=== PATIENT | male | born 1975 | race African-American/Black ===

== ENCOUNTER 2018-03-27 01:05 | Emergency (ER) | payer OTHER ==
[2018-03-27] MEDS ORDERED: IBUPROFEN 600 MG TABLET PO ONE (02:36)
[2018-03-27] MEDS ORDERED: ACETAMINOPHEN 325 MG TABLET PO ONE (02:36)
[2018-03-27] MEDS ORDERED: MORPHINE SULFATE IR 15 MG TABLET PO ONE (02:36)
[2018-03-27] MEDS ORDERED: SULFAMETHOXAZOLE/TRIMETHOPRIM 800-160 MG TABLET PO ONE (02:37)
--- NOTE | 2018-03-27 02:38 | ER Document Report ---
ED General - General Chief Complaint: Abscess Stated Complaint: ABSCESS Time Seen by Provider: 03/27/18 01:20 Notes: Patient is a 42-year-old male with a past medical history of diabetes who presents with several days of progressively worsening swelling and pain to his low abdomen. He describes the area as having a dull, throbbing, constant pain worsened by touching the area. Nothing improves the pain. He has not seen his general doctor regarding today's concerns. He states he believes this is an abscess. He has not had any fever or constitutional symptoms. He denies history of similar symptoms in the past. He denies any additional symptoms or concerns. TRAVEL OUTSIDE OF THE [place] IN LAST 30 DAYS: No - Related Data Allergies/Adverse Reactions: No Known Allergies Allergy (Verified 05/27/16 02:41) Past Medical History - General Information source: Patient - Social History Smoking Status: Never Smoker Frequency of alcohol use: None Drug Abuse: None Lives with: Spouse/Significant other Family History: Reviewed & Not Pertinent - Past Medical History Cardiac Medical History: Reports: Hx Hypercholesterolemia, Hx Hypertension Pulmonary Medical History: Denies: Hx Tuberculosis Neurological Medical History: Denies: Hx Seizures Endocrine Medical History: Reports: Hx Diabetes Mellitus Type 2 Skin Medical History: Reports Hx Cellulitis, Denies Hx MRSA Past Surgical History: Reports: Hx Orthopedic Surgery - ankle and toe. Denies: Hx Appendectomy, Hx Bowel Surgery, Hx Cholecystectomy, Hx Coronary Artery Bypass Graft, Hx Gastric Bypass Surgery, Hx Herniorrhaphy, Hx Pacemaker, Hx Tonsillectomy - Immunizations Immunizations up to date: Yes Hx Diphtheria, Pertussis, Tetanus Vaccination: Yes - 2005 Hx Pneumococcal Vaccination: 08/11/05 Review of Systems - Review of Systems Notes: Constitutional: Negative for fever. HENT: Negative for sore throat. Eyes: Negative for visual changes. Cardiovascular: Negative for chest pain. Respiratory: Negative for shortness of breath. Gastrointestinal: Negative for abdominal pain, vomiting or diarrhea. Genitourinary: Negative for dysuria. Musculoskeletal: Negative for back pain. Skin: Positive for abdominal wall abscess Neurological: Negative for headaches, weakness or numbness. 10 point ROS negative except as marked above and in HPI. Physical Exam - Vital signs Vitals: Temp Pulse Resp BP Pulse Ox 98.0 F 88 14 151/92 H 100 03/27/18 01:12 03/27/18 01:12 03/27/18 01:12 03/27/18 01:12 03/27/18 01:12 Interpretation: Hypertensive Notes: PHYSICAL EXAMINATION: GENERAL: Well-appearing, well-nourished and in no acute distress. HEAD: Atraumatic, normocephalic. EYES: sclera anicteric, conjunctiva are normal. ENT: Moist mucous membranes. NECK: Normal range of motion LUNGS: Normal work of breathing HEART: 2+ radial pulses bilaterally EXTREMITIES: no pitting or edema. No cyanosis. NEUROLOGICAL: No focal neurological deficits. Moves all extremities spontaneously and on command. PSYCH: Normal mood, normal affect. SKIN: Warm, Dry, normal turgor, 1 x 1 cm abscess on the low central abdomen Course - Re-evaluation Re-evalutation: 03/27/18 02:37 Patient presents with a 1 x 1 cm abscess to the lower central superficial abdomen near the umbilicus which was incised and drained without difficulty. No surrounding erythema or cellulitis. Vitals within normal limits. No indication for labs or imaging. Patient tolerated incision and drainage well. Will be discharged home on Bactrim. At this time will discharge with return precautions and follow-up recommendations. Verbal discharge instructions given a the bedside and opportunity for questions given. Medication warnings reviewed. Patient is in agreement with this plan and has verbalized understanding of return precautions and the need for primary care follow-up in the next 24-72 hours. - Vital Signs Vital signs: Temp Pulse Resp BP Pulse Ox 98.0 F 88 14 151/92 H 100 03/27/18 01:12 03/27/18 01:12 03/27/18 01:12 03/27/18 01:12 03/27/18 01:12 Procedures - Incision and Drainage Abdomen Type: Simple Anesthetic type: 1% Lidocaine mL's of anesthetic: 3 Blade size: 11 I&D procedure: Betadine prep applied Incision Method: Incision made by scalpel Amount/type of drainage: 3 cc of purulent drainage Discharge - Discharge Clinical Impression: Abdominal abscess Condition: Good Disposition: HOME, SELF-CARE Additional Instructions: You were seen for an abscess that required drainage. Please clean this area with soap and water twice daily and apply a topical antibiotic. Dress the area after each cleaning. Please return if you develop fever, vomiting, the pain at the site worsens, you notice spreading redness from the area, or you have any other symptoms that are concerning to you. Prescriptions: Sulfamethoxazole/Trimethoprim [Bactrim Ds Tablet] 2 tab PO BID #28 tablet
[2018-03-27 05:30] VITALS: BP 147/93
== END 2018-03-27 03:19 | disposition home or self-care (01) ==
LOC: ER 01:05
DX: L02.211 Cutaneous abscess of abdominal wall (principal); E11.9 Type 2 diabetes mellitus without complications; I10 Essential (primary) hypertension
CPT/HCPCS: 99283

== ENCOUNTER 2019-04-27 23:18 | Emergency (ER) | payer OTHER ==
[2019-04-27 23:34] VITALS: BP 135/83
[2019-04-28] MEDS ORDERED: DIPH/PERTUSS(ACELL)/TETANUS VAC/PF 0.5 ML SYR (>=10YO) IM ONE (00:21)
[2019-04-28] MEDS ORDERED: LIDOCAINE 1% INJ-PF (10 MG/ML) 30 ML SDV INJ ONE ×2 (00:21→01:22)
--- NOTE | 2019-04-28 00:28 | ER Document Report ---
ED Extremity Problem, Lower - General Chief Complaint: Toe Injury Stated Complaint: LEFT TOE INJURY Time Seen by Provider: 04/28/19 00:13 Primary Care Provider: AUGUSTINE ERIC MD [ACTIVE STAFF] - 04/28/19 (Call first thing in the morning let office know Dr. Eric said he needs to see patient today for an open fracture) Mode of Arrival: Wheelchair Information source: Patient Notes: 43-year-old male presents to ED for complaint of a large laceration to the left great toe. He states he was walking across his floor the night and the carpet was sort of up in the air when he tripped over something in the carpet cutting his great toe. He states his looked in the carpet and could not find what he cut his foot on. Patient is alert oriented respirations regular and unlabored. He states he did about 1030. He states he is a diabetic type II and does not have a lot of feeling in his toe. He states the pain levels about a 2 out of 5. TRAVEL OUTSIDE OF THE [place] IN LAST 30 DAYS: No - HPI Patient complains to provider of: Injury, Pain, Swelling Location: Great Toe Occurred: This evening Where: Home, Indoors Onset/Duration: Sudden Quality of pain: Achy Severity: Moderate Pain Level: 2 Context: Laceration, Stubbed Recent injury: Yes Associated symptoms: Turner a crack, Painful ambulation Exacerbated by: Movement, Walking Relieved by: Nothing - Related Data Allergies/Adverse Reactions: No Known Allergies Allergy (Verified 04/27/19 23:21) Past Medical History - General Information source: Patient - Social History Smoking Status: Never Smoker Cigarette use (# per day): No Chew tobacco use (# tins/day): No Smoking Education Provided: No Frequency of alcohol use: None Drug Abuse: None Lives with: Family Family History: Reviewed & Not Pertinent Patient has suicidal ideation: No Patient has homicidal ideation: No - Past Medical History Cardiac Medical History: Reports: Hx Hypercholesterolemia, Hx Hypertension Pulmonary Medical History: Reports: None EENT Medical History: Reports: None Neurological Medical History: Reports: None Endocrine Medical History: Reports: Hx Diabetes Mellitus Type 2 Renal/ Medical History: Reports: None Malignancy Medical History: Reports None GI Medical History: Reports: None Musculoskeletal Medical History: Reports None Skin Medical History: Reports Hx Cellulitis, Denies Hx MRSA Psychiatric Medical History: Reports: None Traumatic Medical History: Reports: Hx Fractures Infectious Medical History: Reports: None Past Surgical History: Reports: Hx Orthopedic Surgery - ankle and toe - Immunizations Immunizations up to date: Yes Hx Diphtheria, Pertussis, Tetanus Vaccination: Yes - 2005 Hx Pneumococcal Vaccination: 08/11/05 Review of Systems - Review of Systems Constitutional: No symptoms reported EENT: No symptoms reported Cardiovascular: No symptoms reported Respiratory: No symptoms reported Gastrointestinal: No symptoms reported Genitourinary: No symptoms reported Male Genitourinary: No symptoms reported Musculoskeletal: Other - Left great toe Skin: Other - Laceration pain injury left great toe Hematologic/Lymphatic: No symptoms reported Neurological/Psychological: No symptoms reported -: Yes All other systems reviewed and negative Physical Exam - Vital signs Vitals: Temp Pulse Resp BP Pulse Ox 98.6 F 90 20 135/83 H 99 04/27/19 23:31 04/27/19 23:31 04/27/19 23:31 04/27/19 23:31 04/27/19 23:31 Interpretation: Normal - General General appearance: Appears well, Alert - HEENT Head: Normocephalic, Atraumatic Eyes: Normal Pupils: PERRL - Respiratory Respiratory status: No respiratory distress Chest status: Nontender Breath sounds: Normal Chest palpation: Normal - Cardiovascular Rhythm: Regular Heart sounds: Normal auscultation Murmur: No - Abdominal Inspection: Normal Distension: No distension Bowel sounds: Normal Tenderness: Nontender Organomegaly: No organomegaly - Back Back: Normal, Nontender - Extremities General upper extremity: Normal inspection, Nontender, Normal color, Normal ROM, Normal temperature General lower extremity: Normal color, Normal ROM, Normal temperature, Normal weight bearing. No: Fadumo's sign Foot: Tender, Ecchymosis - Left great toe, Edema - Left great toe, Laceration - Left great toe, No evidence of FB - Left great toe. No: Abrasion, Deformity, Instability, Metatarsal compress. pain, Nail injury, Navicular tenderness, Puncture wound, Tender 5th metatarsal, Unable to bear weight - Neurological Neuro grossly intact: Yes Cognition: Normal Orientation: AAOx4 Chuck Coma Scale Eye Opening: Spontaneous [place] Coma Scale Verbal: Oriented [place] Coma Scale Motor: Obeys Commands [place] Coma Scale Total: 15 Speech: Normal Motor strength normal: LUE, RUE, LLE, RLE Sensory: Normal - Psychological Associated symptoms: Normal affect, Normal mood - Skin Skin Temperature: Warm Skin Moisture: Dry Skin Color: Normal Course - Re-evaluation Re-evalutation: 04/28/19 01:30 X-ray shows a nondisplaced comminuted fracture of the left great toe. There is a large open laceration. I consulted Dr. Eric who stated that I should clean well irrigate well and sutured the toe and he would see him tomorrow in clinic. Wound was well irrigated after scrubbing with Shur-Clens. I irrigated with a full liter of saline. Wound was sutured patient was given a gram of Rocephin IM as well as a tetanus. Dressing was applied and a postop shoe applied and patient will be discharged home with crutches. Patient verbalized understanding of need to follow-up with Dr. Eric in the morning. - Vital Signs Vital signs: Temp Pulse Resp BP Pulse Ox 98.6 F 90 20 135/83 H 99 04/27/19 23:31 04/27/19 23:31 04/27/19 23:31 04/27/19 23:31 04/27/19 23:31 - Diagnostic Test Radiology reviewed: Image reviewed, Reports reviewed Procedures - Laceration/Wound Repair Left Toe Great toe Time completed: 01:30 Wound length (cm): 6 Wound's Depth, Shape: Into muscle, Linear, Other - Comminuted fracture, laceration into the nailbed goes across the nail Laceration pre-procedure: Sterile drapes applied, Shur-Clens applied Anesthetic type: 1% Lidocaine Volume Anesthetic (mLs): 10 Wound explored: Contaminated Irrigated w/ Saline (mLs): 1,000 Wound Repaired With: Sutures Suture Size/Type: 3:0, Ethilon Number of Sutures: 6 Post-procedure wound care: Sterile dressing applied, Splint applied - Postop shoe Post-procedure NV exam normal: Yes Complications: Yes - Comminuted fracture goes to the nailbed Discharge - Discharge Clinical Impression: Open fracture left great toe affecting nail b Condition: Stable Disposition: HOME, SELF-CARE Additional Instructions: Fractured Toe You have fractured your toe. This is an open fracture of your left great toe. This means there is an open laceration allowing bacteria into the bone. You will need to follow-up with orthopedic surgeon in the morning for increased cleaning and possible reduction of the fracture. It is important for you to keep your foot elevated and do not disturb the dressing until you followed up by the orthopedic surgeon. Please be sure to c all the orthopedic surgeon first thing in the morning because you need to be seen in the morning for this fracture. I have spoken with Dr. Farrah lyons and he said that he would see you in the morning in clinic. If the office tries to save that you cannot be seen in the morning let them know the Dr. Eric said you needed to be seen in clinic in the morning. Post-Op Shoe You are to use a "post-op shoe," sometimes also called a "bunnion shoe." This shoe helps protect minor fractures, sprains, and other injuries of the toes or foot. You may remove the shoe for bathing. Walk carefully. If you're feeling pain, put less weight on the foot, take smaller steps, or use a cane. If you have a new injury, you may need to use crutches for the first couple of days. If pain still prevents walking after a few days, contact the doctor. If there's unexpected pain in your foot, if blisters or sore spots develop, or if the shoe is physically coming apart, return at once. Remember that you're welcome to come in at any time to have the fit of the shoe checked and adjusted. USE OF CRUTCHES: The doctor has recommended that you not bear weight at this time. You will need to use crutches. Adjust the crutches so the tops come to about two inches under the armpit while you are standing upright. Use your hands -- not your armpits -- to support your weight. To get into a chair, support yourself with one crutch on the injured side. Hold the chair with the other hand, then lower yourself while putting all your weight on the good leg. Going up stairs is `good leg up, step up, then bring up crutches and bad leg.' Down stairs is `bad leg and crutches down, then bring good leg down.' If you develop numbness or swelling in an arm or hand, you are using the crutches incorrectly. Return if you are having any problems with the crutches. ICE & ELEVATION: Apply ice packs frequently against the painful area. Many different schedules are recommended, such as "20 minutes on, 20 minutes off" or "one hour ice, two hours rest." If you need to work, you may need to go longer between ice treatments. You should plan to have the area ice packed AT LEAST one-fourth of the time. The ice should be applied over the wrap, tape, or splint, or over a layer of cloth -- not directly against the skin. Some ice bags have a built-in cloth and can be put directly on the skin. Your injured part should be elevated as much as possible over the next 48 hours. Try to keep the injury above the level of the heart. Avoid use of the injured area. Elevation and rest will decrease the swelling. USE OF CENG-DAA-VAOLSAH IBUPROFEN: Ibuprofen (Advil, Nuprin, Medipren, Motrin IB) is a medication for fever and pain control. In addition, it has anti- inflammatory effects which may be beneficial, especially in the treatment of injuries. It's best to take ibuprofen with food. Persons with ulcer disease or allergy to aspirin should notify their physician of this before taking ibuprofen. Ibuprofen can be given every four to six hours, for a total of four doses daily. Age Pain or fever dose Antiinflammatory dose 6-8 yr 200 mg (1 tab) 200 mg (1 tab) 9-11 yr 200 mg (1 tab) 200-400 mg (1-2 tab) 11-14 yr 200-400 mg (1-2 tab) 400 mg (2 tab) 15-adult 400 mg (2 tab) 600 mg (3 tab) ORAL NARCOTIC MEDICATION: You have been given a prescription for pain control. This medication is a narcotic. It's best taken with food, as nausea can result if taken on an empty stomach. Don't operate machinery or drive within six hours of taking this medication. Do not combine this medicine with alcohol, or with any medication which can cause sedation (such as cold tablets or sleeping pills) unless you get permission from the physician. Narcotics tend to cause constipation. If possible, drink plenty of fluids and eat a diet high in fiber and fruits. Please be aware that prescription narcotics also have the potential for abuse. People become addicted to these medications because of the general sense of wellbeing that they induce. This feeling along with a significant reduction in tension, anxiety, and aggression provides a stimulating seductive quality to these drugs. Once your pain is under control, we encourage you to discard your unused narcotics. FOLLOW-UP CARE: If you have been referred to a physician for follow-up care, call the physicians office for an appointment as you were instructed or within the next two days. If you experience worsening or a significant change in your symptoms, notify the physician immediately or return to the Emergency Department at any time for re-evaluation. Prescriptions: Cephalexin Monohydrate [Keflex 500 mg Capsule] 500 mg PO Q6H 5 Days capsule Forms: Elevated Blood Pressure Referrals: AUGUSTINE ERIC MD [ACTIVE STAFF] - 04/28/19 (Call first thing in the morning let office know Dr. Eric said he needs to see patient today for an open fracture)
--- NOTE | 2019-04-28 00:34 | RADIOLOGY REPORT (SQ) ---
EXAM DESCRIPTION: XR FOOT 3 OR MORE VIEWS COMPLETED DATE/TME: 04/27/2019 23:45 CLINICAL HISTORY: 43 years, Male, bone tenderness COMPARISON: None. NUMBER OF VIEWS: 3 TECHNIQUE: 3 views left foot LIMITATIONS: None. FINDINGS: Osteopenia. Nondisplaced comminuted fracture of the distal phalanx of the great toe. Associated soft tissue swelling IMPRESSION: Fracture of the great toe as above copyright 2010 [employer]- All Rights Reserved
[2019-04-28] MEDS ORDERED: CEFTRIAXONE INJ 1000 MG VIAL IM ONE (01:22)
[2019-04-28] MEDS ORDERED: HYDROCODONE/ACETAMINOPHEN 5-325 MG (6 TAB/ER DISP) PO PRN (01:25)
== END 2019-04-28 02:07 | disposition home or self-care (01) ==
LOC: ER 23:18
DX: S92.425B Nondisplaced fracture of distal phalanx of left great toe, initial encounter for open fracture (principal); W45.8XXA Other foreign body or object entering through skin, initial encounter; Y92.009 Unspecified place in unspecified non-institutional (private) residence as the place of occurrence of the external cause; E11.9 Type 2 diabetes mellitus without complications; I10 Essential (primary) hypertension; Z23 Encounter for immunization
CPT/HCPCS: 12002; 99283; 96372; 90471; 73630; 90715; J3490; J0696

== ENCOUNTER 2020-08-21 14:31 | Inpatient (IN) | payer OTHER ==
--- NOTE | 2020-08-21 15:43 | ER Document Report ---
ED Medical Screen (RME) - General Stated Complaint: WOUND CHECK Time Seen by Provider: 08/21/20 15:41 Notes: HPI: 45-year-old male presenting to the emergency department for evaluation of a wound on the heel of the left foot. Patient is a type II diabetic. States the wound started as a blister approximately a week and a half ago. Now with swelling over the foot and increasing ulceration to the heel. PHYSICAL EXAMINATION: There is an ulcer noted on the lateral posterior aspect of the left heel with soft tissue swelling over the dorsum of the left foot. I have greeted and performed a rapid initial assessment of this patient. A comprehensive ED assessment and evaluation of the patient, analysis of test results and completion of medical decision making process will be conducted by an additional ED providers. Please note that clinical decision making for this patient was made during the 2019 pandemic of novel coronavirus which caused a significant strain on the healthcare system including at this particular facility. Criteria for admission discharge and level of care decisions as well as treatment decisions have necessarily changed TRAVEL OUTSIDE OF THE [place] IN LAST 30 DAYS: No - Related Data Allergies/Adverse Reactions: No Known Allergies Allergy (Verified 04/27/19 23:21) Past Medical History - Past Medical History Cardiac Medical History: Reports: Hx Hypercholesterolemia, Hx Hypertension Pulmonary Medical History: Denies: Hx Tuberculosis Neurological Medical History: Denies: Hx Seizures Endocrine Medical History: Reports: Hx Diabetes Mellitus Type 2 Renal/ Medical History: Denies: Hx Peritoneal Dialysis Skin Medical History: Reports Hx Cellulitis, Denies Hx MRSA Traumatic Medical History: Reports: Hx Fractures Past Surgical History: Reports: Hx Orthopedic Surgery - ankle and toe. Denies: Hx Appendectomy, Hx Bowel Surgery, Hx Cholecystectomy, Hx Coronary Artery Bypass Graft, Hx Gastric Bypass Surgery, Hx Herniorrhaphy, Hx Pacemaker, Hx Tonsillectomy - Immunizations Immunizations up to date: Yes Hx Diphtheria, Pertussis, Tetanus Vaccination: Yes - 2005 Physical Exam - Vital signs Vitals: Temp Pulse Resp BP Pulse Ox 98.5 F 94 16 136/81 H 98 08/21/20 14:35 08/21/20 14:35 08/21/20 14:35 08/21/20 14:35 08/21/20 14:35 Course - Vital Signs Vital signs: Temp Pulse Resp BP Pulse Ox 98.5 F 94 16 136/81 H 98 08/21/20 14:35 08/21/20 14:35 08/21/20 14:35 08/21/20 14:35 08/21/20 14:35
--- NOTE | 2020-08-21 16:21 | RADIOLOGY REPORT (SQ) ---
EXAM DESCRIPTION: FOOT LEFT COMPLETE IMAGES COMPLETED DATE/TIME: 08/21/2020 4:12 pm REASON FOR STUDY: diabetic ulcer heel COMPARISON: None. NUMBER OF VIEWS: Three views. TECHNIQUE: AP, lateral and oblique radiographic images acquired of the left foot. LIMITATIONS: None. FINDINGS: MINERALIZATION: Normal. BONES: No acute fracture or dislocation. No worrisome bone lesions. JOINTS: No effusions. SOFT TISSUES: No soft tissue swelling. No foreign body. OTHER: No other significant finding. IMPRESSION: No acute findings. There is no evidence of osteomyelitis. TECHNICAL DOCUMENTATION: JOB ID: [id number] [employer]- All Rights Reserved Reading location - IP/workstation name: [email or web address]
[2020-08-21 17:01] LABS: ABSOLUTE EOSINOPHILS # (AUTO) 0.2 10^3/uL (0.0-0.6); ABSOLUTE MONOCYTES (AUTO) 0.7 10^3/uL (0.1-1.4); ABSOLUTE NEUT (AUTO) 6.7 10^3/uL (1.7-8.2); BASOPHILS % (AUTO) 0.4 % (0-2); EOSINOPHILS % (AUTO) 1.9 % (0-6); HEMATOCRIT 35.9 % (37.9-51.0); HEMOGLOBIN 12.5 g/dL (13.5-17.0); LYMPHOCYTES % (AUTO) 11.3 % (13-45); MEAN CORPUSCULAR HEMOGLOBIN 29.1 pg (27.0-33.4); MEAN CORPUSCULAR HGB CONC 34.9 g/dL (32.0-36.0); MEAN CORPUSCULAR VOLUME 84 fl (80-97); MONOCYTES % (AUTO) 8.1 % (3-13); PLATELET COUNT 161 10^3/uL (150-450); RED CELL DISTRIBUTION WIDTH 14.1 % (11.5-14.0); SEGMENTED NEUTROPHILS % (AUTO) 78.3 % (42-78); TOTAL CELLS COUNTED % (AUTO) 100 %; WHITE BLOOD COUNT 8.5 10^3/uL (4.0-10.5)
[2020-08-21 17:24] LABS: ALKALINE PHOSPHATASE 109 U/L (38-126); ANION GAP 7 (5-19); ASPARTATE AMINO TRANSFERASE 32 U/L (17-59); BILIRUBIN,DIRECT 0.1 mg/dL (0.0-0.4); BILIRUBIN,TOTAL 0.6 mg/dL (0.2-1.3); BLOOD UREA NITROGEN 14 mg/dL (7-20); C-REACTIVE PROTEIN 26.1 mg/L (<10.0); CALCIUM 9.4 mg/dL (8.4-10.2); CARBON DIOXIDE 30 mmol/L (22-30); CHLORIDE 101 mmol/L (98-107); GLUCOSE 231 mg/dL (75-110); POTASSIUM 4.7 mmol/L (3.6-5.0); TOTAL PROTEIN 7.4 g/dL (6.3-8.2)
[2020-08-21 17:42] LABS: ERYTHROCYTE SEDIMENTATION RATE 47 mm/hr (0-15)
[2020-08-21] MEDS ORDERED: AMPICILLIN SOD/SULBACTAM 3 GM VIAL IV ONE (21:48)
--- NOTE | 2020-08-21 21:56 | ER Document Report ---
ED Wound - General Chief Complaint: Wound Infection Stated Complaint: WOUND CHECK Time Seen by Provider: 08/21/20 15:41 Mode of Arrival: Ambulatory Information source: Patient Notes: Patient presents complaining of foot wound to his left heel area for the past 2 weeks. Patient states wound started as a blister and then gradually worsened. Patient states initially he was managing his foot with peroxide and bacitracin. Patient states that the foot has become more swollen and is not improving. Patient denies any fever. TRAVEL OUTSIDE OF THE [place] IN LAST 30 DAYS: No - HPI Patient complains to provider of: Wound infection Occurred: Other - 2 wks Onset/Duration: Worse Quality of pain: Achy Pain Level: 1 Skin Color: Pale Associated Symptoms: Drainage, Swelling. denies: Foreign body - Related Data Allergies/Adverse Reactions: No Known Allergies Allergy (Verified 08/21/20 16:37) Home Medications: glipizide, fish oil... Past Medical History - General Information source: Patient - Social History Smoking Status: Never Smoker Chew tobacco use (# tins/day): No Frequency of alcohol use: None Drug Abuse: None Occupation: none Lives with: Family Family History: Reviewed & Not Pertinent Patient has homicidal ideation: No - Past Medical History Cardiac Medical History: Reports: Hx Hypercholesterolemia, Hx Hypertension Pulmonary Medical History: Denies: Hx Tuberculosis Neurological Medical History: Denies: Hx Seizures Endocrine Medical History: Reports: Hx Diabetes Mellitus Type 2 Renal/ Medical History: Denies: Hx Peritoneal Dialysis Skin Medical History: Reports Hx Cellulitis, Denies Hx MRSA Traumatic Medical History: Reports: Hx Fractures Past Surgical History: Reports: Hx Orthopedic Surgery - ankle and toe - Immunizations Immunizations up to date: Yes Hx Diphtheria, Pertussis, Tetanus Vaccination: Yes - 2005 Hx Pneumococcal Vaccination: 08/11/05 Review of Systems - Review of Systems Constitutional: No symptoms reported. denies: Fever EENT: No symptoms reported Cardiovascular: No symptoms reported Respiratory: No symptoms reported Gastrointestinal: No symptoms reported. denies: Vomiting Genitourinary: No symptoms reported Male Genitourinary: No symptoms reported Musculoskeletal: Ankle swelling Skin: Other - Diabetic foot wound to left lateral foot Hematologic/Lymphatic: No symptoms reported Neurological/Psychological: No symptoms reported Physical Exam - Vital signs Vitals: Temp Pulse Resp BP Pulse Ox 98.5 F 94 16 136/81 H 98 08/21/20 14:35 08/21/20 14:35 08/21/20 14:35 08/21/20 14:35 08/21/20 14:35 - General General appearance: Appears well, Alert In distress: None - HEENT Head: Normocephalic, Atraumatic Eyes: Normal Conjunctiva: Normal Neck: Normal, Supple - Respiratory Respiratory status: No respiratory distress Chest status: Nontender Breath sounds: Normal. No: Rales, Rhonchi, Stridor, Wheezing Chest palpation: Normal - Cardiovascular Rhythm: Regular Heart sounds: S1 appreciated, S2 appreciated Pulses: Normal: Dorsalis pedis - Back Back: Normal - Extremities General upper extremity: Normal inspection, Normal strength General lower extremity: Edema - Left foot Ankle: Nontender, Edema - 2+ edema to left ankle Foot: Other - Diabetic foot wound to lateral aspect of left calcaneus, surrounding skin white in color with erythema extending up the lateral aspect of the left ankle, left foot and ankle swollen - Neurological Neuro grossly intact: Yes Cognition: Normal Chuck Coma Scale Eye Opening: Spontaneous Buckley Coma Scale Verbal: Oriented Buckley Coma Scale Motor: Obeys Commands Chuck Coma Scale Total: 15 - Psychological Associated symptoms: Normal affect, Normal mood - Skin Skin Temperature: Warm Skin Moisture: Dry Skin Color: Other - Light-colored skin around diabetic foot wound to the left lateral heel area, erythema to lateral aspect of left ankle Course - Re-evaluation Re-evalutation: 08/21/20 21:[address] Delarosa regarding patient presentation, he agrees to evaluate patient but states that patient will need to be admitted to hospital team and that surgery will be consulted. He does recommend obtaining a rapid Covid and keeping patient n.p.o. 08/21/20 21:53 Attempted consultation with hospitalist, will await for return phone call. 08/21/20 22:[address] Figueroa who declines admitting patient at this time. He prefers t o have a CT imaging to further evaluate patient's infection and advises having urgent evaluate patient to see if there are any concerns about osteomyelitis. He does not feel that patient warrants admission without systemic signs or objective evidence of osteomyelitis. He is requesting surgeon to perform bedside debridement and discharging patient on oral antibiotics. 08/21/20 22:29 Dr. Delarosa evaluated patient and does feel that patient requires surgical management for his diabetic foot wound. He states that he will take patient to the OR tomorrow and that patient will need admission for IV antibiotics at this time. Spoke with Dr. Figueroa who does agree to admit patient although he would like to have CT imaging still performed of the foot to help guide the treatment. - Vital Signs Vital signs: Temp Pulse Resp BP Pulse Ox 98.4 F 86 16 127/83 H 99 08/22/20 04:37 08/22/20 04:37 08/22/20 04:37 08/22/20 04:37 08/22/20 04:37 - Laboratory Results Result Diagrams: 08/21/20 14:32 08/21/20 14:32 Laboratory Results Interpreted: 08/21/20 08/21/20 14:32 14:32 RBC 4.30 L Hgb 12.5 L Hct 35.9 L RDW 14.1 H Lymph % (Auto) 11.3 L Seg Neutrophils % 78.3 H ESR 47 H Glucose 231 H C-Reactive Protein 26.1 H 08/22/20 06:29 Labs- All tests 24 hr 08/21/20 08/21/20 14:32 14:32 WBC 8.5 RBC 4.30 L Hgb 12.5 L Hct 35.9 L MCV 84 MCH 29.1 MCHC 34.9 RDW 14.1 H Plt Count 161 Lymph % (Auto) 11.3 L Moore % (Auto) 8.1 Eos % (Auto) 1.9 Baso % (Auto) 0.4 Absolute Neuts (auto) 6.7 Absolute Lymphs (auto) 1.0 Absolute Monos (auto) 0.7 Absolute Eos (auto) 0.2 Absolute Basos (auto) 0.0 Seg Neutrophils % 78.3 H ESR 47 H Sodium 137.8 Potassium 4.7 Chloride 101 Carbon Dioxide 30 Anion Gap 7 BUN 14 Creatinine 1.24 Est GFR ( Amer) > 60 Est GFR (MDRD) Non-Af > 60 Glucose 231 H Calcium 9.4 Total Bilirubin 0.6 Direct Bilirubin 0.1 Neonat Total Bilirubin Not Reportable Neonat Direct Bilirubin Not Reportable Neonat Indirect Bili Not Reportable AST 32 ALT 44 Alkaline Phosphatase 109 C-Reactive Protein 26.1 H Total Protein 7.4 Albumin 4.0 Critical Laboratory Results Reviewed: No Critical Results - Radiology Results Critical Radiology Results Reviewed: No Critical Results Discharge - Discharge Clinical Impression: Diabetic foot infection Condition: Stable Disposition: ADMITTED INPATIENT Admitting Provider: Carolina (Hospitalist) Unit Admitted: Medical Floor
[2020-08-21] MEDS ORDERED: NORMAL SALINE 1000 ML 1,000 ML IV ONE (22:14)
--- NOTE | 2020-08-21 22:44 | PDOC CONSULTATION ---
Consultation Consult Date: 08/21/20 Attending physician:: DAKOTAH JUAREZ Provider Consulted: MALIA BROWN Consult reason:: Diabetic left foot wound History of Present Illness Admission Date/PCP: [facility] History of Present Illness: HIRAM HIGH is a 45 year old male Presents emergency department via ground rescue with approximate 2-week history of a swollen, ulcerating, draining left foot ulcer on the lateral aspect of just distal to the heel. Patient is treated this wound with peroxide and bacitracin without resolution. Patient emergency department where is found to have a swollen left foot actively draining purulent discharge. X-ray interpreted as no foreign body, no evidence of osteomyelitis. Patient had normal total white blood cell count, but a left shift, elevated ESR. Surgery was consulted and advised admission to the hospitalist service with plans for operative debridement within the next 12 hours. Past Medical History Cardiac Medical History: Reports: Hyperlipidema, Hypertension Pulmonary Medical History: Denies: Tuberculosis Neurological Medical History: Denies: Seizures Endocrine Medical History: Reports: Diabetes Mellitus Type 2 Past Surgical History Past Surgical History: Perianal abscess drainage Past Surgical History: Reports: Orthopedic Surgery - ankle and toe Denies: Appendectomy, Cholecystectomy, Coronary Artery Bypass Graft, Gastric Bypass Surgery, Herniorrhaphy, Pacemaker, Tonsillectomy Social History Information Source: Patient Smoking Status: Never Smoker Electronic Cigarette use?: No Hx Recreational Drug Use: No Hx Prescription Drug Abuse: No Family History Family History: None, Reviewed & Not Pertinent Parental Family History Reviewed: No Children Family History Reviewed: No Sibling(s) Family History Reviewed.: No Medication/Allergy Home Medications: Doxycycline Hyclate 100 mg PO BID #20 capsule 05/27/16 Sulfamethoxazole/Trimethoprim [Bactrim Ds Tablet] 2 tab PO BID #28 tablet 03/27/18 Cephalexin Monohydrate [Keflex 500 mg Capsule] 500 mg PO Q6H 5 Days capsule 04/28/19 Allergies/Adverse Reactions: No Known Allergies Allergy (Verified 08/21/20 16:37) Review of Systems Constitutional: PRESENT: as per HPI Eyes: PRESENT: visual disturbances Ears: ABSENT: hearing changes Cardiovascular: PRESENT: as per HPI Gastrointestinal: PRESENT: other - No gastroparesis Musculoskeletal: PRESENT: other - Chronic lower extremity neuropathy Physical Exam Vital Signs: Temp Pulse Resp BP Pulse Ox 98.8 F 89 18 139/82 H 99 08/21/20 21:29 08/21/20 21:29 08/21/20 21:29 08/21/20 21:29 08/21/20 21:29 Intake & Output 08/20/20 08/21/20 08/22/20 06:59 06:59 06:59 Weight 73.482 kg General appearance: PRESENT: no acute distress Head exam: PRESENT: normocephalic Eye exam: PRESENT: other - Wearing glasses Mouth exam: PRESENT: dry mucosa Neck exam: PRESENT: full ROM Respiratory exam: PRESENT: clear to auscultation ashley Cardiovascular exam: PRESENT: RRR Pulses: PRESENT: normal carotid pulses, normal radial pulses, normal femoral pulses, normal dorsalis pedis pul GI/Abdominal exam: PRESENT: soft Rectal exam: PRESENT: deferred Extremities exam: PRESENT: +2 edema - Swollen left foot, with chronic wound with seropurulent watery discharge lateral aspect of the foot just distal to the heel, 3 x 5 cm, overlying hypertrophic skin Neurological exam: PRESENT: oriented to person, oriented to place, oriented to time, oriented to situation Psychiatric exam: PRESENT: appropriate affect Skin exam: PRESENT: dry Results Laboratory Results: 08/21/20 14:32 08/21/20 14:32 08/21/20 08/21/20 14:32 14:32 WBC 8.5 RBC 4.30 L Hgb 12.5 L Hct 35.9 L MCV 84 MCH 29.1 MCHC 34.9 RDW 14.1 H Plt Count 161 Seg Neutrophils % 78.3 H Sodium 137.8 Potassium 4.7 Chloride 101 Carbon Dioxide 30 Anion Gap 7 BUN 14 Creatinine 1.24 Est GFR ( Amer) > 60 Glucose 231 H Calcium 9.4 Total Bilirubin 0.6 AST 32 Alkaline Phosphatase 109 C-Reactive Protein 26.1 H Total Protein 7.4 Albumin 4.0 Impressions: Foot X-Ray 08/21/20 15:42 IMPRESSION: No acute findings. There is no evidence of osteomyelitis. Assessment & Plan - Diagnosis (1) Diabetic foot infection Is this a current diagnosis for this admission?: Yes Plan: Impression: Subacute diabetic foot ulceration lateral aspect, with chronic wound, foot swelling, mild leukocytosis. Needs admission, IV fluids and operative debridement Plan: 1. We will have patient mated to the internal medicine service, to manage diabetes, IV fluids and empiric antibiotic therapy 2. We will check rapid COVID-19 test tonight 3. We will post for operative debridement, wound packing tomorrow, by Dr. Carmona, August 22. (2) Peripheral neuropathy Is this a current diagnosis for this admission?: Yes - Time Time Spent: 30 to 50 Minutes Medications reviewed and adjusted accordingly: Yes Anticipated discharge: Home - Inpatient Certification Based on my medical assessment, after consideration of the patient's comorbidities, presenting symptoms, or acuity I expect that the services needed warrant INPATIENT care.: Yes I certify that my determination is in accordance with my understanding of Medicare's requirements for reasonable and necessary INPATIENT services [42 CFR 412.3e].: Yes Medical Necessity: Need For IV Fluids, Need for IV Antibiotics, Need for Surgery
[2020-08-22] MEDS ORDERED: ACETAMINOPHEN 325 MG TABLET PO PRN (00:42)
[2020-08-22] MEDS ORDERED: ONDANSETRON HCL INJ/PF 4 MG/2 ML SDV IV PRN (00:42)
[2020-08-22] MEDS ORDERED: DEXTROSE 50%-WATER 25 GM/50 ML DISP.SYRIN IV PRN ×2 (00:42)
[2020-08-22] MEDS ORDERED: OXYCODONE-ACETAMINOPHEN 5-325 MG TABLET PO PRN (00:42)
[2020-08-22] MEDS ORDERED: DEXTROSE 40% GEL 15 GM TUBE PO PRN ×2 (00:42)
[2020-08-22] MEDS ORDERED: GLUCAGON,HUMAN RECOMB 1 MG INJ SUBCUT PRN (00:42)
[2020-08-22] MEDS ORDERED: ONDANSETRON 4 MG TAB.RAPDIS PO PRN (00:42)
--- NOTE | 2020-08-22 00:42 | RADIOLOGY REPORT (SQ) ---
CT left foot with contrast on 08/22/2020 CLINICAL INDICATION: Diabetic foot wound, diabetic heel ulcer TECHNIQUE: Multiple axial images are obtained throughout the left foot following the administration of IV contrast, 50 mL of Omnipaque 350 contrast was administered intravenously. Sagittal and coronal reformatted images are also performed and reviewed. This exam was performed according to our departmental dose-optimization program, which includes automated exposure control, adjustment of the mA and/or kV according to patient size and/or use of iterative reconstruction technique. Total DLP is 111.71 mGy*cm. COMPARISON: Left foot x-ray from 08/21/2020 FINDINGS: Vascular calcifications are noted. Subcutaneous edema and stranding is noted in the ankle and foot that may be related to anasarca or cellulitis and please correlate clinically. There is no air in the soft tissues to suggest necrotizing fasciitis. The definite site of the patient's wound is not well visualized. There is no fluid collection to suggest abscess. There are no acute fracture lines. No definite CT evidence of osteomyelitis is noted. There is no radiopaque foreign body. Visualized joints are well aligned. IMPRESSION: Subcutaneous edema and stranding in the ankle and foot that may be related to anasarca or cellulitis and please correlate clinically. There is no evidence of abscess, definite osteomyelitis or necrotizing fasciitis.
--- NOTE | 2020-08-22 01:01 | PDOC H&P ---
History of Present Illness Admission Date/PCP: 08/21/20 22:41 [facility] History of Present Illness: HIRAM BETTENCOURT is a 45 year old male past medical history significant for uncontrolled T2DM, diabetic neuropathy who presents the ED after 2 weeks of worsening left lateral diabetic heel ulcer which patient states started as a blister and deteriorated significantly with purulent drainage and foul-smelling material coming from the wound. He has approximately 1 cm of open wound with surrounding likely infected area of approximately 2 to 3 cm. X-ray of left foot did not show any acute findings. CT left lower extremity showed subcutaneous edema and stranding in the ankle and foot may be related to cellulitis but no obvious evidence of abscess or osteomyelitis or necrotizing fasciitis. WBC is normal and patient is afebrile. He denies any systemic symptoms. Patient was initially reluctant to stay in the hospital due to having an eye appointment the following day but with further discussion he agreed to stay for surgical debridement in the morning which was recommended by surgical consult in ED. Patient started on broad antibiotics due to uncontrolled T2DM causing immunocom promise status. Patient is unable to tolerate Metformin and states he uses glipizide and sitagliptin. Patient does not recall the doses of these medications. We will hold glipizide while he is n.p.o. Plan for debridement in the morning per general surgery. N.p.o. at midnight. Past Medical History Cardiac Medical History: Reports: Hyperlipidema, Hypertension Pulmonary Medical History: Denies: Tuberculosis Neurological Medical History: Denies: Seizures Endocrine Medical History: Reports: Diabetes Mellitus Type 2 Past Surgical History Past Surgical History: Reports: Orthopedic Surgery - ankle and toe Denies: Appendectomy, Cholecystectomy, Coronary Artery Bypass Graft, Gastric Bypass Surgery, Herniorrhaphy, Pacemaker, Tonsillectomy Social History Information Source: Patient, Emergency Med Personnel Smoking Status: Never Smoker Electronic Cigarette use?: No Hx Recreational Drug Use: No Hx Prescription Drug Abuse: No - Advance Directive Resuscitation Status: Full Code Surrogate healthcare decision maker:: Admitting diagnosis: Left foot diabetic ulcer All aspects of code status discussed with patient/POA including cardioversion, chest compressions, and intubation and the patient/POA indicated they wish to be full code MPOA is designated as: , Eran Bettencourt Time spent: Greater than 16 minutes Family History Family History: None, Reviewed & Not Pertinent Parental Family History Reviewed: Yes Children Family History Reviewed: Yes Sibling(s) Family History Reviewed.: Yes Medication/Allergy Home Medications: Doxycycline Hyclate 100 mg PO BID #20 capsule 05/27/16 Sulfamethoxazole/Trimethoprim [Bactrim Ds Tablet] 2 tab PO BID #28 tablet 03/27/18 Cephalexin Monohydrate [Keflex 500 mg Capsule] 500 mg PO Q6H 5 Days capsule 04/28/19 Allergies/Adverse Reactions: No Known Allergies Allergy (Verified 08/21/20 16:37) Review of Systems All systems: reviewed and no additional remarkable complaints except as stated - Per HPI otherwise negative Physical Exam Vital Signs: Temp Pulse Resp BP Pulse Ox 98.8 F 89 18 115/80 99 08/21/20 21:29 08/21/20 21:29 08/21/20 21:29 08/21/20 23:00 08/21/20 21:29 Intake & Output 08/20/20 08/21/20 08/22/20 06:59 06:59 06:59 Intake Total 1100 Balance 1100 Weight 73.482 kg Exam: General appearance: PRESENT: no acute distress, well-developed, well-nourished, -[place] male Head exam: PRESENT: atraumatic, normocephalic Eye exam: PRESENT: conjunctiva pink. ABSENT: scleral icterus Mouth exam: PRESENT: moist Respiratory exam: PRESENT: clear to auscultation ashley. ABSENT: rales, rhonchi, wheezes Cardiovascular exam: PRESENT: RRR. ABSENT: diastolic murmur, rubs, systolic murmur GI/Abdominal exam: PRESENT: normal bowel sounds, soft. ABSENT: distended, guarding, mass, organolmegaly, rebound, tenderness Neurological exam: PRESENT: alert, awake, oriented to person, oriented to place, oriented to time, oriented to situation Psychiatric exam: PRESENT: appropriate affect, normal mood Skin exam: PRESENT: dry, intact, warm; approximately 1 cm ulceration at lateral left heel with surrounding area of infection nontender due to neuropathy Results Laboratory Results: 08/21/20 14:32 08/21/20 14:32 08/21/20 08/21/20 14:32 14:32 WBC 8.5 RBC 4.30 L Hgb 12.5 L Hct 35.9 L MCV 84 MCH 29.1 MCHC 34.9 RDW 14.1 H Plt Count 161 Seg Neutrophils % 78.3 H Sodium 137.8 Potassium 4.7 Chloride 101 Carbon Dioxide 30 Anion Gap 7 BUN 14 Creatinine 1.24 Est GFR ( Amer) > 60 Glucose 231 H Calcium 9.4 Total Bilirubin 0.6 AST 32 Alkaline Phosphatase 109 C-Reactive Protein 26.1 H Total Protein 7.4 Albumin 4.0 Impressions: Foot X-Ray 08/21/20 15:42 IMPRESSION: No acute findings. There is no evidence of osteomyelitis. Lower Extremity CT 08/21/20 22:14 IMPRESSION: Subcutaneous edema and stranding in the ankle and foot that may be related to anasarca or cellulitis and please correlate clinically. There is no evidence of abscess, definite osteomyelitis or necrotizing fasciitis. Assessment and Plan - Diagnosis (1) Ulcer of left foot due to type 2 diabetes mellitus Is this a current diagnosis for this admission?: Yes Plan: Left lateral aspect of heel with approximate 1 cm ulceration Vancomycin/cefepime, plan to de-escalate to oral antibiotics after debridement General surgery consulted: Planning debridement on 08/22, n.p.o. midnight Wound care Follow-up with wound clinic outpatient, recommend referral to podiatry (2) T2DM (type 2 diabetes mellitus) Qualifiers: Diabetes mellitus chcf insulin use: without chcf use Diabetes mellitus complication status: with neurologic complications Diabetes mellitus complication detail: with unspecified neuropathy Qualified Code(s): E11.40 - Type 2 diabetes mellitus with diabetic neuropathy, unspecified Is this a current diagnosis for this admission?: Yes Plan: T2DM -accucheks, sliding scale insulin -long acting insulin indicated for HgA1C of 10 or greater -diet counseling -outpt FU with PCP Home dose Januvia continued, holding glipizide while n.p.o. (3) Diabetic neuropathy Qualifiers: Diabetes mellitus type: type 2 Diabetes mellitus complication detail: with other neurological complication Qualified Code(s): E11.49 - Type 2 diabetes mellitus with other diabetic neurological complication Is this a current diagnosis for this admission?: Yes Plan: Home gabapentin restarted - Time Time Spent with patient: 35 or more minutes Medications reviewed and adjusted accordingly: Yes Anticipated Discharge Disposition: Home, Self Care Anticipated Discharge Timeframe: within 48 hours - Inpatient Certification Based on my medical assessment, after consideration of the patient's comorbidities, presenting symptoms, or acuity I expect that the services needed warrant INPATIENT care.: Yes I certify that my determination is in accordance with my understanding of Medicare's requirements for reasonable and necessary INPATIENT services [42 CFR 412.3e].: Yes Medical Necessity: Significant Comorbidiites Make Outpatient Treatment Too Risky, Need Close Monitoring Due to Risk of Patient Decompensation, Need for IV Antibiotics, Risk of Complication if Not Cared For in Hospital, Risk of Diagnosis Which Will Require Inpatient Eval/Care/Monitoring
[2020-08-22] MEDS ORDERED: VANCOMYCIN HCL 1,000 MG in DEXTROSE 5%-WATER 250 ML IV ONE ×2 (03:15→05:00)
[2020-08-22] MEDS ORDERED: VANCOMYCIN HCL INJ 1000 MG VIAL ONE (04:36)
[2020-08-22] MEDS: HEPARIN SOD (PORCINE) 5,000 UNIT/ML 1 ML VIAL SUBCUT SCH ×3 (04:59→21:54)
[2020-08-22 07:05] LABS: ABSOLUTE EOSINOPHILS # (AUTO) 0.1 10^3/uL (0.0-0.6); ABSOLUTE MONOCYTES (AUTO) 0.6 10^3/uL (0.1-1.4); ABSOLUTE NEUT (AUTO) 6.1 10^3/uL (1.7-8.2); BASOPHILS % (AUTO) 0.5 % (0-2); EOSINOPHILS % (AUTO) 1.8 % (0-6); HEMATOCRIT 32.9 % (37.9-51.0); HEMOGLOBIN 11.5 g/dL (13.5-17.0); LYMPHOCYTES % (AUTO) 12.7 % (13-45); MEAN CORPUSCULAR HEMOGLOBIN 28.9 pg (27.0-33.4); MEAN CORPUSCULAR HGB CONC 34.9 g/dL (32.0-36.0); MEAN CORPUSCULAR VOLUME 83 fl (80-97); MONOCYTES % (AUTO) 7.4 % (3-13); PLATELET COUNT 131 10^3/uL (150-450); RED BLOOD COUNT 3.96 10^6/uL (4.35-5.55); RED CELL DISTRIBUTION WIDTH 14.1 % (11.5-14.0); SEGMENTED NEUTROPHILS % (AUTO) 77.6 % (42-78); TOTAL CELLS COUNTED % (AUTO) 100 %; WHITE BLOOD COUNT 7.9 10^3/uL (4.0-10.5)
[2020-08-22 07:17] LABS: ANION GAP 5 (5-19); BLOOD UREA NITROGEN 11 mg/dL (7-20); CALCIUM 8.4 mg/dL (8.4-10.2); CARBON DIOXIDE 27 mmol/L (22-30); CHLORIDE 105 mmol/L (98-107); GLUCOSE 194 mg/dL (75-110); PHOSPHORUS 3.8 mg/dL (2.5-4.5); POTASSIUM 4.7 mmol/L (3.6-5.0)
[2020-08-22] MEDS: INSULIN LISPRO 100 UNIT/ML 3 ML VIAL SUBCUT SCH ×4 (08:12→22:59)
[2020-08-22] MEDS: CEFEPIME HCL 2 GM in DEXTROSE 5%-WATER 50 ML IV SCH ×2 (09:15→23:00)
[2020-08-22] MEDS: SITAGLIPTIN PHOSPHATE 25 MG TABLET PO SCH (09:16)
[2020-08-22] MEDS: GABAPENTIN 100 MG CAPSULE PO SCH ×2 (09:16→22:58)
[2020-08-22] MEDS ORDERED: MIDAZOLAM 2 MG/2 ML INJ ONE (09:22)
[2020-08-22] MEDS ORDERED: FENTANYL CITRATE INJ/PF 100 MCG/2 ML AMPUL ONE (09:22)
[2020-08-22] MEDS ORDERED: ONDANSETRON HCL INJ/PF 4 MG/2 ML SDV ONE (09:23)
[2020-08-22] MEDS ORDERED: MORPHINE SULFATE 10 MG/ML INJ ONE (09:23)
[2020-08-22] MEDS ORDERED: PROPOFOL INJ 200 MG/20 ML VIAL IV ONE (09:23)
--- NOTE | 2020-08-22 09:44 | PDOC PROGRESS REPORT ---
Subjective Date:: 08/22/20 Subjective:: No complaints Reason For Visit: LEFT FOOT DIABETIC ULCER, UNCONTROLLED T2DM Physical Exam Vital Signs: Temp Pulse Resp BP Pulse Ox 98.4 F 86 16 127/83 H 99 08/22/20 08:41 08/22/20 04:37 08/22/20 04:37 08/22/20 04:37 08/22/20 04:37 Intake & Output 08/21/20 08/22/20 08/23/20 06:59 06:59 06:59 Intake Total 1100 Balance 1100 Weight 85.7 kg General appearance: PRESENT: no acute distress, thin Extremities exam: PRESENT: +2 edema - Left foot, other - Left foot = present with 3 cm dry ulcer in the lateral aspect of the hand foot, no erythema, diffuse foot swelling particularly on the dorsal aspect, skin warm, neurovascularly intact Results Laboratory Results: 08/22/20 06:12 08/22/20 06:12 08/21/20 08/21/20 08/22/20 14:32 14:32 06:12 WBC 8.5 7.9 RBC 4.30 L 3.96 L Hgb 12.5 L 11.5 L Hct 35.9 L 32.9 L MCV 84 83 MCH 29.1 28.9 MCHC 34.9 34.9 RDW 14.1 H 14.1 H Plt Count 161 131 L Seg Neutrophils % 78.3 H 77.6 Sodium 137.8 Potassium 4.7 Chloride 101 Carbon Dioxide 30 Anion Gap 7 BUN 14 Creatinine 1.24 Est GFR ( Amer) > 60 Glucose 231 H Calcium 9.4 Phosphorus Magnesium Total Bilirubin 0.6 AST 32 Alkaline Phosphatase 109 C-Reactive Protein 26.1 H Total Protein 7.4 Albumin 4.0 08/22/20 06:12 WBC RBC Hgb Hct MCV MCH MCHC RDW Plt Count Seg Neutrophils % Sodium 136.5 L Potassium 4.7 Chloride 105 Carbon Dioxide 27 Anion Gap 5 BUN 11 Creatinine 0.90 Est GFR ( Amer) > 60 Glucose 194 H Calcium 8.4 Phosphorus 3.8 Magnesium 1.7 Total Bilirubin AST Alkaline Phosphatase C-Reactive Protein Total Protein Albumin Impressions: Foot X-Ray 08/21/20 15:42 IMPRESSION: No acute findings. There is no evidence of osteomyelitis. Lower Extremity CT 08/21/20 22:14 IMPRESSION: Subcutaneous edema and stranding in the ankle and foot that may be related to anasarca or cellulitis and please correlate clinically. There is no evidence of abscess, definite osteomyelitis or necrotizing fasciitis. Assessment & Plan - Diagnosis (1) Diabetic foot infection Is this a current diagnosis for this admission?: Yes (2) Diabetic neuropathy Qualifiers: Diabetes mellitus type: type 2 Diabetes mellitus complication detail: with other neurological complication Qualified Code(s): E11.49 - Type 2 diabetes mellitus with other diabetic neurological complication Is this a current diagnosis for this admission?: Yes - Time Anticipated Discharge Disposition: Home with Home Health Anticipated Discharge Timeframe: within 72 hours - Plan Summary Plan Summary: Assessment: Type 1 diabetes Left foot lateral aspect ulceration, no erythema Diffuse left foot dorsal edema CT scan left foot reveals no subcutaneous gas or osteomyelitis Plan: Debridement of the left foot ulceration at bedside today Procedure, risks, benefits, complications, explained to the patient, he understands all the above, he decides to proceed
[2020-08-22] MEDS ORDERED: VANCOMYCIN HCL INJ 1000 MG VIAL IV SCH (10:00)
[2020-08-22] MEDS ORDERED: CEFEPIME 2 GM/D5W RTU 2 GM/50 ML RTUPB IV SCH (10:00)
[2020-08-22] MEDS ORDERED: LIDOCAINE 1%/EPINEPHRINE INJ 20 ML VIAL INJ PRN (10:22)
--- NOTE | 2020-08-22 13:13 | Operative Report ---
Nonrecallable Operative Report DATE OF SURGERY: 08/22/20 PREOPERATIVE DIAGNOSIS: Left lateral foot ulcer 3 cm in diameter POSTOPERATIVE DIAGNOSIS: Same OPERATION: sharp, full-thickness debridement to subcutaneous tissue, left lateral foot ulcer measuring 3 cm SURGEON: KERVIN MORROW ANESTHESIA: Local - 15 mL 1% lidocaine with epinephrine TISSUE REMOVED OR ALTERED: Left lateral foot eschar COMPLICATIONS: None ESTIMATED BLOOD LOSS: Less than 5 mL INTRAOPERATIVE FINDINGS: 5 cm skin eschar of the left lateral posterior foot PROCEDURE: The procedure was done at bedside, the left lateral foot skin was prepped and draped in the usual fashion, the area was infiltrated with lidocaine, an inc ision was made with a #11 blade to remove the entire skin eschar down to subcutaneous tissue with active bleeding. At this point the procedure was pleaded, the area was packed with a normal saline moist 4 x 4, dry 4 x 4's, ABDs Kerlix Bishnu bandage. The patient tolerated procedure well.
[2020-08-22] MEDS: VANCOMYCIN HCL 1,000 MG in DEXTROSE 5%-WATER 250 ML IV SCH ×2 (14:43→23:47)
[2020-08-22] MEDS ORDERED: GLIPIZIDE 5 MG TABLET PO ONE ×2 (18:58→23:00)
--- NOTE | 2020-08-22 19:00 | PDOC PROGRESS REPORT ---
Subjective Date:: 08/22/20 Reason For Visit: LEFT FOOT DIABETIC ULCER, UNCONTROLLED T2DM Physical Exam Vital Signs: Temp Pulse Resp BP Pulse Ox 98.5 F 87 16 116/70 99 08/22/20 14:53 08/22/20 14:53 08/22/20 14:53 08/22/20 14:53 08/22/20 14:53 Intake & Output 08/21/20 08/22/20 08/23/20 06:59 06:59 06:59 Intake Total 1100 240 Balance 1100 240 Weight 85.7 kg General appearance: PRESENT: no acute distress, cooperative Neck exam: ABSENT: JVD Respiratory exam: PRESENT: unlabored. ABSENT: accessory muscle use, retraction Cardiovascular exam: PRESENT: RRR, +S1, +S2. ABSENT: tachycardia GI/Abdominal exam: PRESENT: soft. ABSENT: rebound, rigid, tenderness Extremities exam: PRESENT: other - left heel ulceration Neurological exam: PRESENT: alert, awake Results Laboratory Results: 08/22/20 06:12 08/22/20 06:12 08/22/20 08/22/20 06:12 06:12 WBC 7.9 RBC 3.96 L Hgb 11.5 L Hct 32.9 L MCV 83 MCH 28.9 MCHC 34.9 RDW 14.1 H Plt Count 131 L Seg Neutrophils % 77.6 Sodium 136.5 L Potassium 4.7 Chloride 105 Carbon Dioxide 27 Anion Gap 5 BUN 11 Creatinine 0.90 Est GFR ( Amer) > 60 Glucose 194 H Calcium 8.4 Phosphorus 3.8 Magnesium 1.7 Impressions: Foot X-Ray 08/21/20 15:42 IMPRESSION: No acute findings. There is no evidence of osteomyelitis. Lower Extremity CT 08/21/20 22:14 IMPRESSION: Subcutaneous edema and stranding in the ankle and foot that may be related to anasarca or cellulitis and please correlate clinically. There is no evidence of abscess, definite osteomyelitis or necrotizing fasciitis. Assessment and Plan - Diagnosis (1) Ulcer of left foot due to type 2 diabetes mellitus Is this a current diagnosis for this admission?: Yes (2) Diabetic foot infection Is this a current diagnosis for this admission?: Yes (3) Peripheral neuropathy Is this a current diagnosis for this admission?: Yes (4) T2DM (type 2 diabetes mellitus) Qualifiers: Diabetes mellitus senior living insulin use: without senior living use Diabetes mellitus complication status: with neurologic complications Diabetes mellitus complication detail: with unspecified neuropathy Qualified Code(s): E11.40 - Type 2 diabetes mellitus with diabetic neuropathy, unspecified Is this a current diagnosis for this admission?: Yes - Plan Summary Summary: Continue current IV antibiotics vancomycin and cefepime. Patient underwent bedside debridement by surgery today. He recommends wet-to-dry dressings twice a day and follow-up in the also surgical clinic. Plan for discharge tomorrow on antibiotics and follow-up. Continue gabapentin for patient's neuropathy. - Time Time Spent with patient: Less than 15 minutes Anticipated Discharge Disposition: Home, Self Care Anticipated Discharge Timeframe: within 24 hours
[2020-08-23] MEDS: HEPARIN SOD (PORCINE) 5,000 UNIT/ML 1 ML VIAL SUBCUT SCH (05:16)
[2020-08-23 05:39] LABS: ABSOLUTE EOSINOPHILS # (AUTO) 0.2 10^3/uL (0.0-0.6); ABSOLUTE MONOCYTES (AUTO) 0.7 10^3/uL (0.1-1.4); ABSOLUTE NEUT (AUTO) 6.5 10^3/uL (1.7-8.2); BASOPHILS % (AUTO) 0.3 % (0-2); EOSINOPHILS % (AUTO) 1.9 % (0-6); HEMATOCRIT 33.7 % (37.9-51.0); HEMOGLOBIN 11.8 g/dL (13.5-17.0); LYMPHOCYTES % (AUTO) 12.4 % (13-45); MEAN CORPUSCULAR HEMOGLOBIN 29.1 pg (27.0-33.4); MEAN CORPUSCULAR VOLUME 83 fl (80-97); MONOCYTES % (AUTO) 8.5 % (3-13); PLATELET COUNT 135 10^3/uL (150-450); RED BLOOD COUNT 4.06 10^6/uL (4.35-5.55); RED CELL DISTRIBUTION WIDTH 14.3 % (11.5-14.0); SEGMENTED NEUTROPHILS % (AUTO) 76.9 % (42-78); TOTAL CELLS COUNTED % (AUTO) 100 %; WHITE BLOOD COUNT 8.4 10^3/uL (4.0-10.5)
[2020-08-23 05:54] LABS: ANION GAP 6 (5-19); BLOOD UREA NITROGEN 15 mg/dL (7-20); CALCIUM 8.6 mg/dL (8.4-10.2); CARBON DIOXIDE 28 mmol/L (22-30); CHLORIDE 102 mmol/L (98-107); GLUCOSE 188 mg/dL (75-110); PHOSPHORUS 4.2 mg/dL (2.5-4.5); POTASSIUM 4.5 mmol/L (3.6-5.0)
[2020-08-23 06:04] LABS: VANCOMYCIN,TROUGH 13.7 ug/mL (5.0-20.0)
[2020-08-23] MEDS: VANCOMYCIN HCL 1,000 MG in DEXTROSE 5%-WATER 250 ML IV SCH (06:38)
--- NOTE | 2020-08-23 08:15 | PDOC PROGRESS REPORT ---
Subjective Date:: 08/23/20 Subjective:: Feels well Reason For Visit: LEFT FOOT DIABETIC ULCER, UNCONTROLLED T2DM Physical Exam Vital Signs: Temp Pulse Resp BP Pulse Ox 98.8 F 90 16 132/71 H 97 08/23/20 00:06 08/23/20 00:06 08/23/20 00:06 08/23/20 00:06 08/23/20 00:06 Intake & Output 08/22/20 08/23/20 08/24/20 06:59 06:59 06:59 Intake Total 1100 1620 Balance 1100 1620 Weight 85.7 kg 85.7 kg General appearance: PRESENT: no acute distress Head exam: PRESENT: normocephalic Eye exam: PRESENT: EOMI Ear exam: PRESENT: normal external ear exam Mouth exam: PRESENT: moist Teeth exam: PRESENT: poor dentation Neck exam: PRESENT: full ROM Respiratory exam: PRESENT: clear to auscultation ashley Cardiovascular exam: PRESENT: RRR Pulses: PRESENT: normal radial pulses, normal femoral pulses Vascular exam: PRESENT: normal capillary refill Breast: PRESENT: Normal GI/Abdominal exam: PRESENT: soft Rectal exam: PRESENT: deferred Musculoskeletal exam: PRESENT: other - The left medial heel wound has no evidence of any infection at this point there is subcutaneous and fatty tissue there is evidence of bleeds easily upon contact. The base of the wound is clean Neurological exam: PRESENT: alert, awake, oriented to person, oriented to place Psychiatric exam: PRESENT: appropriate affect Skin exam: PRESENT: dry Results Laboratory Results: 08/23/20 05:25 08/23/20 05:25 08/23/20 08/23/20 05:25 05:25 WBC 8.4 RBC 4.06 L Hgb 11.8 L Hct 33.7 L MCV 83 MCH 29.1 MCHC 35.0 RDW 14.3 H Plt Count 135 L Seg Neutrophils % 76.9 Sodium 135.8 L Potassium 4.5 Chloride 102 Carbon Dioxide 28 Anion Gap 6 BUN 15 Creatinine 0.93 Est GFR ( Amer) > 60 Glucose 188 H Calcium 8.6 Phosphorus 4.2 Magnesium 1.8 Impressions: Foot X-Ray 08/21/20 15:42 IMPRESSION: No acute findings. There is no evidence of osteomyelitis. Lower Extremity CT 08/21/20 22:14 IMPRESSION: Subcutaneous edema and stranding in the ankle and foot that may be related to anasarca or cellulitis and please correlate clinically. There is no evidence of abscess, definite osteomyelitis or necrotizing fasciitis. Assessment & Plan - Time Anticipated Discharge Disposition: Home, Self Care Anticipated Discharge Timeframe: within 24 hours - Plan Summary Plan Summary: Morning impression left medial heel wound status post debridement at bedside. Currently the wound is clean and undergoing wet-to-dry dressing changes. Patient can be discharged home with the being taught how to do 3 times daily dressing changes I encouraged the patient to get in the shower at least once a day and irrigate the wound with the showerhead. He can follow-up in surgical clinic or wound clinic in 7 to 10 days. He will continue wet-to-dry dressing changes at least 3 times daily with saline soaked gauze and then Kerlix wrap. Surgery will sign off at this point please reconsult if necessary.
[2020-08-23] MEDS: INSULIN LISPRO 100 UNIT/ML 3 ML VIAL SUBCUT SCH ×2 (08:51→13:01)
[2020-08-23] MEDS ORDERED: GLIPIZIDE 10 MG TABLET PO SCH (10:00)
[2020-08-23] MEDS: CEFEPIME HCL 2 GM in DEXTROSE 5%-WATER 50 ML IV SCH (11:02)
--- NOTE | 2020-08-23 12:01 | PDOC DISCHARGE SUMMARY ---
Impression - Admit/DC Date/PCP Admission Date/Primary Care Provider: 08/21/20 22:[facility] Discharge Date: 08/23/20 - Discharge Diagnosis (1) Ulcer of left foot due to type 2 diabetes mellitus Is this a current diagnosis for this admission?: Yes (2) Diabetic foot infection Is this a current diagnosis for this admission?: Yes (3) Peripheral neuropathy Is this a current diagnosis for this admission?: Yes (4) T2DM (type 2 diabetes mellitus) Is this a current diagnosis for this admission?: Yes - Additional Information Resuscitation Status: Full Code Discharge Diet: Diabetic Discharge Activity: Activity As Tolerated Referrals: [facility] [Provider Group] - 09/01/20 9:15 am (WITH DR. BROWN) WOUND CARE [Outside] (UNABLE TO SCHEDULE AN APPT. UNTIL AUTHORIZATION FROM CT IS APPROVED.) [facility] [Primary Care Provider] - 08/22/20 1:28 pm (OFFICE WILL CONTACT THE PATIENT WITH A FOLLOW UP APPT. PATIENT WILL NEED TO REQUEST AUTHORIZATION FROM CT TO SCHEDULE AN APPT. WITH THE WOUND CARE CLINIC) Prescriptions: Sulfamethoxazole/Trimethoprim [Bactrim Ds Tablet] 1 each PO Q12 7 Days #14 tablet Ciprofloxacin HCl [Cipro 500 mg Tablet] 500 mg PO Q12 7 Days #14 tablet Home Medications: Alogliptin Benzoate [Alogliptin] 25 mg PO DAILY 08/22/20 Glipizide [Glucotrol 10 mg Tablet] 10 mg PO DAILY 08/22/20 [place]-3 Fatty Acids [Fish Oil Concentrate] 2,000 mg PO DAILY 08/22/20 Ciprofloxacin HCl [Cipro 500 mg Tablet] 500 mg PO Q12 7 Days #14 tablet 08/23/20 Sulfamethoxazole/Trimethoprim [Bactrim Ds Tablet] 1 each PO Q12 7 Days #14 tablet 08/23/20 History of Present Illiness History of Present Illness: According to admitting provider: HIRAM HIGH is a 45 year old male past medical history significant for uncontrolled T2DM, diabetic neuropathy who presents the ED after 2 weeks of worsening left lateral diabetic heel ulcer which patient states started as a blister and deteriorated significantly with purulent drainage and foul-smelling material coming from the wound. He has approximately 1 cm of open wound with surrounding likely infected area of approximately 2 to 3 cm. X-ray of left foot did not show any acute findings. CT left lower extremity showed subcutaneous edema and stranding in the ankle and foot may be related to cellulitis but no obvious evidence of abscess or osteomyelitis or necrotizing fasciitis. WBC is normal and patient is afebrile. He denies any systemic symptoms. Patient was initially reluctant to stay in the hospital due to having an eye appointment the following day but with further discussion he agreed to stay for surgical debridement in the morning which was recommended by surgical consult in ED. Patient started on broad antibiotics due to uncontrolled T2DM causing immunocompromise status. Patient is unable to tolerate Metformin and states he uses glipizide and sitagliptin. Patient does not recall the doses of these medications. We will hold glipizide while he is n.p.o. Plan for debridement in the morning per general surgery. N.p.o. at midnight. Hospital Course Hospital Course: Patient was admitted to the hospital for diabetic foot ulcer with concern for infection. Also was located on the heel. Stage unknown. He had no evidence of sepsis based off his vital signs and labs. CT scan was obtained on admission which revealed no evidence of osteomyelitis but showed soft tissue swelling. He was treated with broad-spectrum IV antibiotics vancomycin and cefepime for suspected wound infection and accompanying cellulitis. He was evaluated by surgery who performed a bedside debridement. His hemoglobin A1c is down to 8. Patient states that his hemoglobin a1c not too long ago was over 9 before he started his current regimen. Will continue to follow-up with his PCP regarding his diabetes. I have given him counseling on proper dieting to help with his diabetes. Surgery has cleared patient for discharge and recommend wet-to-dry dressing 3 times a day and patient is scheduled for follow-up with the also surgical clinic and wound care clinic. I will give patient 7 days of antibiotics with Bactrim and ciprofloxacin. Physical Exam Vital Signs: Temp Pulse Resp BP Pulse Ox 98.5 F 88 16 123/72 97 08/23/20 07:16 08/23/20 07:16 08/23/20 07:16 08/23/20 07:16 08/23/20 07:16 Intake & Output 08/22/20 08/23/20 08/24/20 06:59 06:59 06:59 Intake Total 1100 1620 250 Balance 1100 1620 250 Weight 85.7 kg 85.7 kg General appearance: PRESENT: no acute distress, cooperative Neck exam: ABSENT: JVD Respiratory exam: PRESENT: unlabored. ABSENT: accessory muscle use Neurological exam: PRESENT: alert, awake Results Laboratory Results: WBC 8.4 10^3/uL (4.0-10.5) 08/23/20 05:25 RBC 4.06 10^6/uL (4.35-5.55) L 08/23/20 05:25 Hgb 11.8 g/dL (13.5-17.0) L 08/23/20 05:25 Hct 33.7 % (37.9-51.0) L 08/23/20 05:25 MCV 83 fl (80-97) 08/23/20 05:25 MCH 29.1 pg (27.0-33.4) 08/23/20 05:25 MCHC 35.0 g/dL (32.0-36.0) 08/23/20 05:25 RDW 14.3 % (11.5-14.0) H 08/23/20 05:25 Plt Count 135 10^3/uL (150-450) L 08/23/20 05:25 Lymph % (Auto) 12.4 % (13-45) L 08/23/20 05:25 [place] % (Auto) 8.5 % (3-13) 08/23/20 05:25 Eos % (Auto) 1.9 % (0-6) 08/23/20 05:25 Baso % (Auto) 0.3 % (0-2) 08/23/20 05:25 Absolute Neuts (auto) 6.5 10^3/uL (1.7-8.2) 08/23/20 05:25 Absolute Lymphs (auto) 1.0 10^3/uL (0.5-4.7) 08/23/20 05:25 Absolute Monos (auto) 0.7 10^3/uL (0.1-1.4) 08/23/20 05:25 Absolute Eos (auto) 0.2 10^3/uL (0.0-0.6) 08/23/20 05:25 Absolute Basos (auto) 0.0 10^3/uL (0.0-0.2) 08/23/20 05:25 Seg Neutrophils % 76.9 % (42-78) 08/23/20 05:25 ESR 47 mm/hr (0-15) H 08/21/20 14:32 Sodium 135.8 mmol/L (137-145) L 08/23/20 05:25 Potassium 4.5 mmol/L (3.6-5.0) 08/23/20 05:25 Chloride 102 mmol/L (98-107) 08/23/20 05:25 Carbon Dioxide 28 mmol/L (22-30) 08/23/20 05:25 Anion Gap 6 (5-19) 08/23/20 05:25 BUN 15 mg/dL (7-20) 08/23/20 05:25 Creatinine 0.93 mg/dL (0.52-1.25) 08/23/20 05:25 Est GFR ( Amer) > 60 (>60) 08/23/20 05:25 Est GFR (MDRD) Non-Af > 60 (>60) 08/23/20 05:25 Glucose 188 mg/dL (75-110) H 08/23/20 05:25 POC Glucose 279 mg/dL (70-110) H 08/23/20 10:39 Hemoglobin A1c % 8.0 % (4.7-6.0) H 08/22/20 06:12 Calcium 8.6 mg/dL (8.4-10.2) 08/23/20 05:25 Phosphorus 4.2 mg/dL (2.5-4.5) 08/23/20 05:25 Magnesium 1.8 mg/dL (1.6-2.3) 08/23/20 05:25 Total Bilirubin 0.6 mg/dL (0.2-1.3) 08/21/20 14:32 Direct Bilirubin 0.1 mg/dL (0.0-0.4) 08/21/20 14:32 Neonat Total Bilirubin Not Reportable 08/21/20 14:32 Neonat Direct Bilirubin Not Reportable 08/21/20 14:32 Neonat Indirect Bili Not Reportable 08/21/20 14:32 AST 32 U/L (17-59) 08/21/20 14:32 ALT 44 U/L (<50) 08/21/20 14:32 Alkaline Phosphatase 109 U/L (38-126) 08/21/20 14:32 C-Reactive Protein 26.1 mg/L (<10.0) H 08/21/20 14:32 Total Protein 7.4 g/dL (6.3-8.2) 08/21/20 14:32 Albumin 4.0 g/dL (3.5-5.0) 08/21/20 14:32 Time Trough Drawn 0525 08/23/20 05:25 Vancomycin Trough 13.7 ug/mL (5.0-20.0) 08/23/20 05:25 Influenza A (RT-PCR) NEGATIVE (NEGATIVE) 08/21/20 22:53 Influenza B (RT-PCR) NEGATIVE (NEGATIVE) 08/21/20 22:53 RSV (RT-PCR) NEGATIVE (NEGATIVE) 08/21/20 22:53 SARS-CoV-2 Rap RNA(RT-PCR) NEGATIVE (NEGATIVE) 08/21/20 22:53 Impressions: Foot X-Ray 08/21/20 15:42 IMPRESSION: No acute findings. There is no evidence of osteomyelitis. Lower Extremity CT 08/21/20 22:14 IMPRESSION: Subcutaneous edema and stranding in the ankle and foot that may be related to anasarca or cellulitis and please correlate clinically. There is no evidence of abscess, definite osteomyelitis or necrotizing fasciitis. Plan Time Spent: Greater than 30 Minutes Stroke Is this a Stroke Patient?: No Acute Heart Failure Is this a Heart Failure Patient?: No
[2020-08-23] MEDS: GABAPENTIN 100 MG CAPSULE PO SCH (12:53)
[2020-08-23] MEDS: SITAGLIPTIN PHOSPHATE 25 MG TABLET PO SCH (12:53)
[2020-08-23 14:13] VITALS: BP 161/88
== END 2020-08-23 14:46 | disposition home or self-care (01) | DRG 623 ==
LOC: ER 14:31 → EH 22:41 → 4S 08-22 01:28
PROVIDERS: ADMIT Internal Medicine; ATTEND Internal Medicine
PROC: 0JBR0ZZ Excision of Left Foot Subcutaneous Tissue and Fascia, Open Approach (ICD-10-PCS; principal; 2020-08-22)
DX: E11.621 Type 2 diabetes mellitus with foot ulcer (principal); L97.421 Non-pressure chronic ulcer of left heel and midfoot limited to breakdown of skin; Z20.822 Contact with and (suspected) exposure to COVID-19; E11.42 Type 2 diabetes mellitus with diabetic polyneuropathy; E78.5 Hyperlipidemia, unspecified; I10 Essential (primary) hypertension; E11.65 Type 2 diabetes mellitus with hyperglycemia; Z79.899 Other long term (current) drug therapy
CPT/HCPCS: 36415; 80048; 80053; 80202; 82962; 83036; 83735; 84100; 85025; 85652; 86140; 87040; 99285; 0241U; C9803; J0295; J0692; J1815; J2250; J2270; J2405; J2704; J3010; J3370; J3490; J7030; J7060